=== PATIENT | male | born 1965 | race African-American/Black ===

== ENCOUNTER 2024-11-08 06:01 | Emergency (ER) | payer MEDICAID ==
[~2024-11-08] VITALS: Ht 180.3 cm; Wt 82.0 kg
[2024-11-08 06:09] VITALS: TEMP 36.8; O2SAT 98
[2024-11-08 06:35] VITALS: BP 134/80; PULSE 90; RESP 14; O2SAT 98
== END 2024-11-08 06:38 | disposition home or self-care (01) ==
LOC: ER 06:19
DX: S60.511A Abrasion of right hand, initial encounter (principal); F10.129 Alcohol abuse with intoxication, unspecified; I10 Essential (primary) hypertension; X58.XXXA Exposure to other specified factors, initial encounter; Y93.89 Activity, other specified; Y92.89 Other specified places as the place of occurrence of the external cause; Y99.8 Other external cause status; Y90.9 Presence of alcohol in blood, level not specified
CPT/HCPCS: 99283

== ENCOUNTER 2024-11-08 10:02 | Emergency (ER) | payer MEDICAID ==
[~2024-11-08] VITALS: Ht 177.8 cm; Wt 82.0 kg
[2024-11-08 10:04] VITALS: BP 117/76; PULSE 109; RESP 17; TEMP 36.8; O2SAT 94
== END 2024-11-08 10:18 | disposition home or self-care (01) ==
LOC: ER 10:02
DX: M54.9 Dorsalgia, unspecified (principal)
CPT/HCPCS: 99283